=== PATIENT | male | born 1950 | race Caucasian/White ===

== ENCOUNTER 2018-06-10 08:47 | Inpatient (IN) | payer MEDICARE, OTHER ==
[~2018-06-10] VITALS: Ht 167.6 cm; Wt 101.3 kg
[~2018-06-10 08:47] MED LIST: ASPIRIN 81M81 MG/TA2 PO; DETROL LA4 PO; LASIX 40MG TABL40 MG PO; MASON NATURAL1200 MG PO; NEXIUM 40MG40 MG PO; SLO-NIACIN750 MG PO; [UNRECOGNIZED DRUG - OTHER] PO
[2018-06-10 09:13] VITALS: BP 142/65; PULSE 72; TEMP 98
[2018-06-10] MEDS ORDERED: KAPSPARGO SPRIN25 MG PO (09:17)
[2018-06-10 09:41] LABS: INR 0.9 (0.8-3.0); PROTHROMBIN TIME 10.6 SECONDS (9.7-12.8)
[2018-06-10 09:58] LABS: ALBUMIN 4.2 gm/dL (3.5-5.0); BILIRUBIN,TOTAL 0.6 mg/dL (0.0-1.0); CREATININE, serum 1.32 mg/dL (0.66-1.25); MAGNESIUM 2.1 mg/dL (1.6-2.3); POTASSIUM 5.2 mmol/L (3.4-5.0); TOTAL PROTEIN 7.8 gm/dL (6.4-8.2)
[2018-06-10 10:25] LABS: BASO % 0.6 % (0.0-2.0); EOS # 0.2 (0.0-0.7); EOS % 4.4 % (0-4.0); GRAN # 2.2 (1.4-6.5); GRAN % 45.4 % (42.2-75.2); HEMATOCRIT 46.7 % (42.0-52.0); HEMOGLOBIN 15.3 g/dl (13.5-18.0); LYMPH # 1.6 (1.2-3.4); LYMPH % 32.2 % (20.0-51.0); MEAN CELL VOLUME 93 fl (80.0-100.0); MEAN CORPUSCULAR HEMOGLOBIN 31 pg (27.0-31.0); MEAN CORPUSCULAR HGB CONC 33 g/dl (33.0-37.0); MEAN PLATELET VOLUME 10.9 fl (7.4-10.4); MONO # 0.8 (0.1-0.6); MONO % 17.2 % (1.7-9.3); PLATELET COUNT 141 K/mm3 (130-400); RED BLOOD COUNT 5.01 M/mm3 (4.20-5.60); REDCELL DISTRIBUTION WIDTH-CV 13.3 % (11.5-14.5)
[2018-06-10 11:20] VITALS: BP 131/69; PULSE 63; TEMP 97.7
[2018-06-10 12:12] LABS: CREATININE, serum 1.21 mg/dL (0.66-1.25); POTASSIUM 5.6 mmol/L (3.4-5.0)
[2018-06-10 16:36] VITALS: BP 133/87; PULSE 64; TEMP 97.7
[2018-06-10 19:27] VITALS: BP 136/74; PULSE 71; TEMP 97.8
[2018-06-11] VITALS: BP 140/75; PULSE 56; TEMP 97.8
[2018-06-11 04:16] VITALS: BP 107/55; PULSE 68; TEMP 97.6
[2018-06-11 06:10] LABS: BASO % 0.6 % (0.0-2.0); EOS # 0.3 (0.0-0.7); EOS % 5.6 % (0-4.0); GRAN # 2.1 (1.4-6.5); GRAN % 41.5 % (42.2-75.2); HEMATOCRIT 45.2 % (42.0-52.0); HEMOGLOBIN 14.9 g/dl (13.5-18.0); LYMPH # 1.8 (1.2-3.4); MEAN CELL VOLUME 93 fl (80.0-100.0); MEAN CORPUSCULAR HEMOGLOBIN 31 pg (27.0-31.0); MEAN CORPUSCULAR HGB CONC 33 g/dl (33.0-37.0); MEAN PLATELET VOLUME 10.9 fl (7.4-10.4); MONO # 0.9 (0.1-0.6); MONO % 17.1 % (1.7-9.3); PLATELET COUNT 126 K/mm3 (130-400); PROTHROMBIN TIME 11.6 SECONDS (9.7-12.8); RED BLOOD COUNT 4.88 M/mm3 (4.20-5.60); REDCELL DISTRIBUTION WIDTH-CV 13.2 % (11.5-14.5)
[2018-06-11 06:19] LABS: CALCIUM 8.5 mg/dL (8.4-10.2); CREATININE, serum 1.24 mg/dL (0.66-1.25); MAGNESIUM 2.1 mg/dL (1.6-2.3); POTASSIUM 4.5 mmol/L (3.4-5.0)
[2018-06-11 07:46] VITALS: BP 113/63; PULSE 66; TEMP 97.9
[2018-06-11 13:11] VITALS: BP 135/77; PULSE 61; TEMP 97.9
[2018-06-11 15:45] VITALS: BP 127/72; PULSE 62; TEMP 97.9
[2018-06-11 21:53] VITALS: BP 116/66; PULSE 59; TEMP 98.4
[2018-06-12 04:00] VITALS: BP 113/63; PULSE 62; TEMP 97.8
[2018-06-12 05:46] LABS: BASO % 0.5 % (0.0-2.0); EOS # 0.2 (0.0-0.7); EOS % 4.1 % (0-4.0); GRAN # 2.6 (1.4-6.5); GRAN % 45.9 % (42.2-75.2); HEMATOCRIT 46.2 % (42.0-52.0); HEMOGLOBIN 15.1 g/dl (13.5-18.0); LYMPH # 1.9 (1.2-3.4); LYMPH % 33.3 % (20.0-51.0); MEAN CELL VOLUME 92 fl (80.0-100.0); MEAN CORPUSCULAR HEMOGLOBIN 30 pg (27.0-31.0); MEAN CORPUSCULAR HGB CONC 33 g/dl (33.0-37.0); MEAN PLATELET VOLUME 10.9 fl (7.4-10.4); MONO # 0.9 (0.1-0.6); PLATELET COUNT 134 K/mm3 (130-400); REDCELL DISTRIBUTION WIDTH-CV 13.2 % (11.5-14.5)
[2018-06-12 05:53] LABS: CALCIUM 8.7 mg/dL (8.4-10.2); CREATININE, serum 1.35 mg/dL (0.66-1.25); POTASSIUM 4.6 mmol/L (3.4-5.0)
[2018-06-12 07:22] VITALS: BP 119/63; PULSE 63; TEMP 98.2
[2018-06-12 08:56] LABS: PROTHROMBIN TIME 11.6 SECONDS (9.7-12.8)
[2018-06-12] MEDS ORDERED: BETAPACE 120MG120 MG PO (09:09)
== END 2018-06-12 11:56 | disposition home or self-care (01) | DRG 309 ==
LOC: MEDICAL 08:47
PROVIDERS: Internal Medicine Cardiovascular Disease; Nurse Practitioner
DX: I48.0 Paroxysmal atrial fibrillation (principal); I50.30 Unspecified diastolic (congestive) heart failure; E87.5 Hyperkalemia